=== PATIENT | female | born 1990 | race Hispanic/Latino ===

== ENCOUNTER 2019-08-08 14:18 | Emergency (ER) | payer OTHER, SELFPAY ==
[2019-08-08] MEDS ORDERED: ACETAMINOPHEN EXTRA STRENGTH 500 MG TABLET ONE (15:16)
[2019-08-08] MEDS ORDERED: ONDANSETRON ODT 4 MG TAB ONE (15:16)
== END 2019-08-08 20:57 | disposition home or self-care (01) ==
LOC: EDH 14:18
DX: H65.02 Acute serous otitis media, left ear (principal); R51 Headache; R11.2 Nausea with vomiting, unspecified; R06.02 Shortness of breath; Z20.828 Contact with and (suspected) exposure to other viral communicable diseases; I10 Essential (primary) hypertension; E11.9 Type 2 diabetes mellitus without complications; Z90.49 Acquired absence of other specified parts of digestive tract; Z72.0 Tobacco use
CPT/HCPCS: 36415; 71045; 80053; 80305; 81003; 81025; 82550; 83690; 85025; 87804 ×2; 87880; 93005; 99285; U0003